=== PATIENT | female | born 2005 | race Caucasian/White ===

== ENCOUNTER 2024-01-24 20:58 | Emergency (ER) | payer OTHER ==
[2024-01-24 21:54] LABS: BASOPHILS PERCENT AUTO 0.5 % (0.0-1.0); EOSINOPHILS ABSOLUTE AUTO 0.1 K/mm3 (0.0-0.7); EOSINOPHILS PERCENT AUTO 1.2 % (0.0-5.0); HEMATOCRIT 36.8 % (37.0-47.0); HEMOGLOBIN 12.4 gm/dl (12.0-16.0); IMMATURE GRAN ABSOLUTE AUTO 0.01 K/mm3 (0.00-0.05); IMMATURE GRAN PERCENT AUTO 0.1 % (0.0-0.4); LYMPHOCYTES ABSOLUTE AUTO 4.5 K/mm3 (2.0-8.8); LYMPHOCYTES PERCENT AUTO 55.2 % (50.0-65.0); MEAN CORPUSCULAR HEMOGLOBIN 28.6 pg (28.0-32.0); MEAN CORPUSCULAR HGB CONC 33.7 g/dl (32.0-36.0); MEAN CORPUSCULAR VOLUME 84.8 fl (83.0-99.0); MEAN PLATELET VOLUME 7.9 fl (9.4-12.3); MONOCYTES ABSOLUTE AUTO 0.5 K/mm3 (0.1-1.4); MONOCYTES PERCENT AUTO 6.2 % (2.0-10.0); NEUTROPHILS PERCENT AUTO 36.8 % (35.0-45.0); PLATELET COUNT,PLT 184 K/mm3 (150-400); RED BLOOD CELL COUNT 4.34 M/mm3 (4.10-5.30); WHITE BLOOD CELL COUNT,WBC 8.08 K/mm3 (4.5-13.5)
[2024-01-24] MEDS: Dexamethasone 1 MG/ML Oral Drops 30 ML Bottle PO ONE (22:03)
[2024-01-24 22:16] LABS: HCG QUALITATIVE,SERUM NEGATIVE (NEGATIVE)
[2024-01-24 22:18] LABS: A/G RATIO 0.9 (1-2); ALBUMIN 3.6 g/dl (3.4-5.0); ANION GAP 15.9 (5-15); BILIRUBIN TOTAL 0.7 mg/dL (0.2-1.0); BUN/CREATININE RATIO 13.3 (14-18); CALCIUM 9.5 mg/dL (8.5-10.1); CREATININE 0.9 mg/dL (0.55-1.02); EST CRCL DRUG DOSING (CG) 84.95 mL/min; POTASSIUM,K 3.9 mEq/L (3.5-5.1); PROTEIN TOTAL,TP 7.7 g/dl (6.4-8.2)
[2024-01-24 23:49] LABS: C. TRACHOMATIS BY PCR NOT DETECTED; N. GONORRHOEAE BY PCR NOT DETECTED
== END 2024-01-25 01:58 | disposition home or self-care (01) ==
LOC: JD.ED 20:58
DX: B27.90 Infectious mononucleosis, unspecified without complication (principal)
CPT/HCPCS: 36415; 80053; 84703; 85025; 86308; 87070; 87491; 87591; 87651; 99283; A9270